=== PATIENT | male | born 2000 | race Caucasian/White ===

== ENCOUNTER 2024-09-03 16:43 | Emergency (ER) | payer OTHER, SELFPAY ==
[2024-09-03 16:45] VITALS: BP 142/85; PULSE 129; RESP 15; TEMP 36.6; O2SAT 95; BMI 26.4
--- NOTE | 2024-09-03 16:52 | CTR_ITS ---
PROCEDURE INFORMATION: Exam: CT Head Without Contrast Exam date and time: 09/03/2024 5:08 PM Age: 23 years old Clinical indication: Injury or trauma; Fall; Laceration; Without residual foreign body; Eye and forehead; Left; Additional info: Fall, head injury TECHNIQUE: Imaging protocol: Computed tomography of the head without contrast. Sagittal and coronal reformatted images were also reviewed. Radiation optimization: All CT scans at this facility use at least one of these dose optimization techniques: automated exposure control; mA and/or kV adjustment per patient size (includes targeted exams where dose is matched to clinical indication); or iterative reconstruction. COMPARISON: No relevant prior studies available. RADIATION DOSE METRICS: Total DLP (mGy-cm): 1144.37 FINDINGS: Brain: No acute intracranial hemorrhage. No acute infarct. No intra-axial or extra-axial masses. Sargent-white matter differentiation is preserved. No cerebral edema. No extra-axial fluid collections. No midline shift. No evidence for Chiari 1 malformation. Cerebral ventricles: No hydrocephalus. Paranasal sinuses: Visualized paranasal sinuses are clear. Mastoid air cells: Visualized mastoid air cells are clear. Orbital cavities: No acute abnormality in the visualized orbits. Bones: Unremarkable. No acute fracture. Soft tissues: Laceration with mild surrounding soft tissue swelling at the left superior orbital rim. No radiopaque foreign body. CT/CT head wo con* [id number] IMPRESSION: 1. No acute abnormality of the brain. 2. Laceration with mild surrounding soft tissue swelling at the left superior orbital rim.
--- NOTE | 2024-09-03 16:54 | ED_ITS ---
Documented by User: Vi Fisher MD 09/03/24 19:08 HPI - Wound/Laceration General: Chief Complaint: Wound/Laceration Stated Complaint: head injury Time Seen by Provider: 09/03/24 16:46 History of Present Illness: 23-year-old man Who presents to the [facility] room with a laceration to his left forehead. He says he did not lose consciousness. Says he was in the field and tripped and hit his head on a large rock. Patient is alert and oriented. He is had no nausea or vomiting. No altered mental status. He does not know when his last tetanus was Related Data Previous Rx's ?Medication ?Instructions ?Recorded cefdinir 300 mg capsule 300 mg PO BID 7 days #14 cap s 09/03/24 Allergies Allergy/AdvReac Type Severity Reaction Status Date / Time No Known Allergies Allergy Verified 09/03/24 16:50 Review of Systems Narrative: Constitutional symptoms: Negative except as documented in HPI. Skin symptoms: Negative except as documented in HPI. Eye symptoms: Negative except as documented in HPI. ENMT symptoms: Negative except as documented in HPI. Respiratory symptoms: Negative except as documented in HPI. Cardiovascular symptoms: Negative except as documented in HPI. Gastrointestinal symptoms: Negative except as documented in HPI. Genitourinary symptoms: Negative except as documented in HPI. Musculoskeletal symptoms: Negative except as documented in HPI. Neurologic symptoms: Negative except as documented in HPI. Psychiatric symptoms: Negative except as documented in HPI. Endocrine symptoms: Negative except as documented in HPI. Physical Exam Narrative: EXAM NARRATIVE: General: Alert, no acute distress. Skin: Warm, dry. Head: Normocephalic, large gaping laceration running horizontally above the left eyebrow. This is about 3 cm in length. Neck: Supple, trachea midline. Eye: Extraocular movements are intact. Ears, nose, mouth and throat: mucosa moist. Cardiovascular: Regular, Normal peripheral perfusion. Respiratory: Lungs are clear to auscultation, respirations are non-labored, breath sounds are equal, Symmetrical chest wall expansion. Gastrointestinal: Soft, Nontender, Non distended Musculoskeletal: Normal ROM, no deformity. Neurological: Alert and oriented, No focal neurological deficit observed. Psychiatric: Cooperative, appropriate mood & affect. Course Vital Signs: Vital signs: Vital Signs Temperature 97.8 F 09/03/24 16:45 Pulse Rate 82 09/03/24 18:28 Respiratory Rate 15 09/03/24 16:45 Blood Pressure 103/89 09/03/24 18:28 Pulse Oximetry 99 09/03/24 18:28 Oxygen Delivery Me thod Room Air 09/03/24 16:45 MDM - Wound/Laceration Medical Decision Making CT head: Soft tissue abnormality seen on the left eyebrow consistent with a laceration. No acute intracranial process. no intracranial hemorrhage, no evidence of infarct. no evidence of acute fracture.This was reviewed and interpreted by myself the ER physician. See PAINTING INSTRUCTOR note for laceration repair procedure. Assessment and plan: Facial laceration ? Life-saving tetanus and Ancef in the emergency room. - Discharged home - Discussed plan with patient. Answered any questions. - Evaluation and treatment of this problem were appropriate in the emergency setting. Lab Data Radiology Impressions Head CT 09/03/24 16:52 IMPRESSION: 1. No acute abnormality of the brain. 2. Laceration with mild surrounding soft tissue swelling at the left superior orbital rim. Discharge Plan Discharge Patient Disposition: Home Clinical Impression: Forehead laceration Condition: Stable Prescriptions: New cefdinir 300 mg capsule 300 mg PO BID 7 Days Qty: 14 0RF Discharge Orders: Discharge ED (Routine); Ordered 09/03/24 Ordered By: Vi Fisher Discharge Diet: Usual diet Discharge Activity: Limit activity as instructed Patient Instructions: Opioid Safety, Pain Management Activity Restrictions/Additional Instructions: Keep the area clean and dry, wash twice per day with antibacterial soap and water. Return to your primary provider or the emergency room in 7 days for sut ure removal. Avoid any prolonged submersion in water. Avoid all [place] water, pond water, streams or other untreated water. Thank you for choosing [facility] for your healthcare needs today. You have been screened and evaluated and felt safe for discharge. Health conditions do change or evolve sometimes and as such it is important that you follow up with your Primary Doctor to be re checked, 3-5 days is a general good time frame for follow up. You are always welcome to return to the ED for re assessment if your symptoms are worsening or you have new concerns Print Language: Estonian Coding Level of Care Code ED Bioassayist for Chg Fwd Documented by User: JAMES Shields 09/03/24 19:09 HPI - Wound/Laceration General: Chief Complaint: Wound/Laceration Stated Complaint: head injury Time Seen by Provider: 09/03/24 16:46 Related Data Previous Rx's ?Medication ?Instructions ?Recorded cefdinir 300 mg capsule 300 mg PO BID 7 days #14 cap s 09/03/24 Allergies Allergy/AdvReac Type Severity Reaction Status Date / Time No Known Allergies Allergy Verified 09/03/24 16:50 Procedures Laceration Laceration 1: Site: face (above eyebrow) Side (If applicable): left Size (cm): 5 Description: linear and clean Depth: simple, single layer Local Anesthetic: lidocaine 2% Amount of anesthesia used (mL): 5 Pre-repair: wound explored, irrigated extensively and deep structures intact Skin layer closed with: nylon Size (cm): 4-0 Number of sutures: 10 Technique: simple, interrupted Course Vital Signs: Vital signs: Vital Signs Temperature 97.8 F 09/03/24 16:45 Pulse Rate 82 09/03/24 18:28 Respiratory Rate 15 09/03/24 16:45 Blood Pressure 103/89 09/03/24 18:28 Pulse Oximetry 99 09/03/24 18:28 Oxygen Delivery Me thod Room Air 09/03/24 16:45 MDM - Wound/Laceration Lab Data Radiology Impressions Head CT 09/03/24 16:52 IMPRESSION: 1. No acute abnormality of the brain. 2. Laceration with mild surrounding soft tissue swelling at the left superior orbital rim. All radiology interpretation(s) finalized by discharge Discharge Plan Discharge Patient Disposition: Home Clinical Impression: Forehead laceration Condition: Stable Prescriptions: New cefdinir 300 mg capsule 300 mg PO BID 7 Days Qty: 14 0RF Discharge Orders: Discharge ED (Routine); Ordered 09/03/24 Ordered By: Vi Fisher Discharge Diet: Usual diet Discharge Activity: Limit activity as instructed Patient Instructions: Opioid Safety, Pain Management Activity Restrictions/Additional Instructions: Keep the area clean and dry, wash twice per day with antibacterial soap and water. Return to your primary provider or the emergency room in 7 days for suture removal. Avoid any prolonged submersion in water. Avoid all [place] water, pond water, streams or other untreated water. Thank you for choosing [facility] for your healthcare needs today. You have been screened and evaluated and felt safe for discharge. Health conditions do change or evolve sometimes and as such it is important that you follow up with your Primary Doctor to be re checked, 3-5 days is a general good time frame for follow up. You are always welcome to return to the ED for re assessment if your symptoms are worsening or you have new concerns Print Language: Estonian Coding Level of Care Code ED Bioassayist for Mark Vasques
[2024-09-03] MEDS: tetanus-dipt-pertussis 0.5 mL SDV IM (17:11)
[2024-09-03] MEDS: ceFAZolin 2,000 mg SDV 2000 MG IVP (17:18)
[2024-09-03] MEDS: lidocaine-epi 1% 20 mL INJ INJECTION (17:48)
[2024-09-03 18:28] VITALS: BP 103/89; PULSE 82; O2SAT 99
== END 2024-09-03 18:30 | disposition home or self-care (01) ==
PROVIDERS: Emergency Provider Emergency Medicine
DX: S01.81XA Laceration without foreign body of other part of head, initial encounter (principal); W01.118A Fall on same level from slipping, tripping and stumbling with subsequent striking against other sharp object, initial encounter
CPT/HCPCS: 12013; 70450; 90715; 96374; 99285; J0690; J9999